=== PATIENT | female | born 1955 | race Caucasian/White ===

== ENCOUNTER 2022-04-16 17:14 | Emergency (ER) | payer OTHER ==
[~2022-04-16] VITALS: Ht 162.6 cm; Wt 51.7 kg
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
[2022-04-16 17:57] VITALS: BP_SYST 142
--- NOTE | 2022-04-16 21:00 | NUR ---
Pt A&Ox4, respirations even and unlabored, will cont to monitor
--- NOTE | 2022-04-16 23:31 | NUR ---
Patient to ER bed 3 to gown for evaluation. Side rails up. Report given to Piper LING(reg).
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
[2022-04-17] MEDS ORDERED: IBUPROFEN 600 MG TABLET PO ONE (00:15)
[2022-04-17] MEDS ORDERED: ACETAMINOPHEN 500 MG TABLET PO ONE (00:15)
--- NOTE | 2022-04-17 00:23 | NUR ---
Placed knee immobilizer and crutches. Showed pt. how to use cutches and pt. demostrated the proper use.
[2022-04-17] MEDS ORDERED: ACET-2634 PO (00:27)
[2022-04-17] MEDS ORDERED: IBUP-1969 PO (00:27)
[2022-04-17 00:56] VITALS: BP_SYST 141
--- NOTE | 2022-04-17 00:56 | NUR ---
Patient given written and verbal discharge instructions and verbalizes understanding. ER MD discussed with patient the results and treatment provided. Patient in stable condition. ID arm band removed. Rx for ibuprofen and tylenol given. Patient educated on pain management and to follow up with Ortho MD/ PMD. Pain Scale 2/10. Opportunity for questions provided and answered.
== END 2022-04-17 00:56 | disposition home or self-care (01) ==
LOC: EDBD 17:14 → SED 17:14
DX: S82.141A Displaced bicondylar fracture of right tibia, initial encounter for closed fracture (principal); Z88.0 Allergy status to penicillin; Z79.899 Other long term (current) drug therapy; V18.0XXA Pedal cycle driver injured in noncollision transport accident in nontraffic accident, initial encounter; Y93.89 Activity, other specified; Y92.89 Other specified places as the place of occurrence of the external cause; Y99.8 Other external cause status
CPT/HCPCS: 73564; 99283